=== PATIENT | female | born 1965 | race Two or more races ===

== ENCOUNTER 2019-11-20 14:49 | Emergency (ER) | payer OTHER ==
[~2019-11-20] VITALS: Ht 152.4 cm; Wt 70.3 kg
[2019-11-20 16:16] VITALS: BP 136/91
[2019-11-20] MEDS ORDERED: TETANUS-DIPTH-ACEL PERTUSSIS 0.5ML SYR Tdap IM ONE (17:00)
== END 2019-11-20 17:46 | disposition home or self-care (01) ==
LOC: ER 14:49
DX: S71.112A Laceration without foreign body, left thigh, initial encounter (principal); W54.0XXA Bitten by dog, initial encounter; Y93.89 Activity, other specified; Y92.89 Other specified places as the place of occurrence of the external cause; Y99.8 Other external cause status
CPT/HCPCS: 90471; 90715